=== PATIENT | male | born 1960 | race Caucasian/White ===

== ENCOUNTER 2018-07-25 19:53 | Emergency (ER) | payer OTHER ==
[~2018-07-25] VITALS: Ht 172.7 cm; Wt 90.7 kg
[~2018-07-25 19:53] MED LIST: ASPI81EC PO; CEPH500 PO; CLIN300 PO; DIGO.25; HYDACE5 PO; LOVA20 PO; Lovastatin10 MG PO; METO100ER PO; METO50; METO50ER; METO50ER PO; Norco 10-325 T1 EACH PO; OXYACE5T PO; SIMV10 PO; TERB24TC TOP; WARF1; WARF1 PO; WARF10; WARF10 PO; WARF5 PO; WARF7.5 PO
== END 2018-07-25 20:47 | disposition home or self-care (01) ==
LOC: ER 19:53
DX: K91.840 Postprocedural hemorrhage of a digestive system organ or structure following a digestive system procedure (principal); Z88.5 Allergy status to narcotic agent; Z79.899 Other long term (current) drug therapy; Z79.82 Long term (current) use of aspirin; Z79.01 Long term (current) use of anticoagulants; F17.210 Nicotine dependence, cigarettes, uncomplicated
CPT/HCPCS: 99283

== ENCOUNTER 2018-07-26 01:51 | Emergency (ER) | payer OTHER ==
[~2018-07-26] VITALS: Ht 172.7 cm; Wt 90.7 kg
[~2018-07-26 01:51] MED LIST changes: -ASPI81EC PO; +LO-DOSE ASPIRIN81 MG PO; +WARF4 PO; -WARF7.5 PO
== END 2018-07-26 04:51 | disposition home or self-care (01) ==
LOC: ER 01:51
DX: K06.8 Other specified disorders of gingiva and edentulous alveolar ridge (principal); D68.9 Coagulation defect, unspecified; Z88.5 Allergy status to narcotic agent; Z79.899 Other long term (current) drug therapy; Z79.01 Long term (current) use of anticoagulants; Z79.82 Long term (current) use of aspirin; I10 Essential (primary) hypertension; F17.210 Nicotine dependence, cigarettes, uncomplicated
CPT/HCPCS: 99283; J2405

== ENCOUNTER 2018-07-26 16:22 | Emergency (ER) | payer OTHER, SELFPAY ==
[~2018-07-26] VITALS: Ht 172.7 cm; Wt 87.1 kg
[2018-07-26 17:33] LABS: BASOPHILS ABSOLUTE AUTO 0.02 K/mm3 (0.00-0.23); BASOPHILS PERCENT AUTO 0 % (0-2); EOSINOPHILS ABSOLUTE AUTO 0.04 K/mm3 (0.00-0.68); EOSINOPHILS PERCENT AUTO 1 % (0-6); Hematocrit 36.9 % (37.0-53.0); Hemoglobin 12.3 g/dL (13.5-17.5); IMMATURE GRAN ABSOLUTE AUTO 0.05 K/mm3 (0.00-0.10); IMMATURE GRAN PERCENT AUTO 1 % (0-1); LYMPHOCYTES ABSOLUTE AUTO 1.06 K/mm3 (0.84-5.20); LYMPHOCYTES PERCENT AUTO 12 % (21-46); MONOCYTES ABSOLUTE AUTO 0.85 K/mm3 (0.16-1.47); MONOCYTES PERCENT AUTO 10 % (4-13); Mean Corpuscular HGB 31.5 pg (26.0-34.0); Mean Corpuscular HGB Conc 33.3 g/dL (31.5-36.5); Mean Corpuscular Volume 94 fL (80-100); Mean Platelet Volume 10.6 fL (9.1-12.4); NEUTROPHILS ABSOLUTE AUTO 6.57 K/mm3 (1.96-9.15); NEUTROPHILS PERCENT AUTO 77 % (41-73); Platelet Count 342 K/mm3 (150-400); RDW Standard Deviation 44.7 fL (35.1-46.3); Red Blood Cell Count 3.91 M/mm3 (4.30-5.90); White Blood Cell Count 8.59 K/mm3 (4.00-11.30)
[2018-07-26 17:43] LABS: Alanine Aminotransfer (ALT/SGP 115 U/L (12-78); Albumin, Blood 4.2 g/dL (3.4-5.0); Albumin/Globulin Ratio 1.1 (0.8-1.8); Alk Phos 121 U/L (50-136); Anion Gap 11 mmol/L (6-16); Aspartate Aminotrans (AST/SGOT 110 U/L (12-37); Bilirubin, Total 1.1 mg/dL (0.1-1.0); Blood Urea Nitrogen 27 mg/dL (8-24); Bun/Creatinine Ratio 27.4 (12.0-20.0); CO2, Blood 24 mmol/L (21-32); Calcium, Blood 9.3 mg/dL (8.5-10.1); Chloride, Blood 102 mmol/L (98-108); Creatinine, Blood 0.99 mg/dL (0.60-1.20); Globulin, Blood 3.8 g/dL (2.2-4.0); Glomerular Filtration Rate >60 (60-); Glucose, Blood 136 mg/dL (70-99); Potassium, Blood 4.5 mmol/L (3.5-5.5); Sodium, Blood 137 mmol/L (136-145)
[2018-07-26 19:27] LABS: International Normalized Ratio 1.83; Prothrombin Time Results 18.4 Sec (9.7-11.5)
== END 2018-07-27 00:31 | disposition home or self-care (01) ==
LOC: ER 16:22
PROVIDERS: Emergency Medicine; Physician Assistant
DX: K06.8 Other specified disorders of gingiva and edentulous alveolar ridge (principal); I48.91 Unspecified atrial fibrillation; Z88.5 Allergy status to narcotic agent; Z79.899 Other long term (current) drug therapy; Z79.82 Long term (current) use of aspirin; Z79.01 Long term (current) use of anticoagulants; I10 Essential (primary) hypertension; F17.210 Nicotine dependence, cigarettes, uncomplicated
CPT/HCPCS: 36415; 71046; 80053; 85025; 85610; 86850; 86900; 86901; 93005; 93010; 96374; 99284-25; J7040

== ENCOUNTER 2018-07-29 06:58 | Observation (INO) | payer OTHER, SELFPAY ==
[~2018-07-29] VITALS: Ht 172.7 cm; Wt 89.2 kg
[2018-07-29 07:47] LABS: BASOPHILS ABSOLUTE AUTO 0.03 K/mm3 (0.00-0.23); BASOPHILS PERCENT AUTO 1 % (0-2); EOSINOPHILS ABSOLUTE AUTO 0.08 K/mm3 (0.00-0.68); EOSINOPHILS PERCENT AUTO 2 % (0-6); Hematocrit 25.6 % (37.0-53.0); Hemoglobin 8.5 g/dL (13.5-17.5); IMMATURE GRAN ABSOLUTE AUTO 0.03 K/mm3 (0.00-0.10); IMMATURE GRAN PERCENT AUTO 1 % (0-1); LYMPHOCYTES PERCENT AUTO 15 % (21-46); MONOCYTES ABSOLUTE AUTO 0.42 K/mm3 (0.16-1.47); MONOCYTES PERCENT AUTO 9 % (4-13); Mean Corpuscular HGB Conc 33.2 g/dL (31.5-36.5); Mean Corpuscular Volume 93 fL (80-100); Mean Platelet Volume 9.9 fL (9.1-12.4); NEUTROPHILS ABSOLUTE AUTO 3.37 K/mm3 (1.96-9.15); NEUTROPHILS PERCENT AUTO 73 % (41-73); Platelet Count 222 K/mm3 (150-400); RDW Coefficient Variation 13.2 % (11.7-14.2); RDW Standard Deviation 44.7 fL (35.1-46.3); Red Blood Cell Count 2.74 M/mm3 (4.30-5.90); White Blood Cell Count 4.63 K/mm3 (4.00-11.30)
[2018-07-29 08:18] LABS: IMMATURE RETIC FRACTION 18.9 % (2.3-16.0); RETIC HGB EQUIVALENT 35.9 pg (28.20-36.60); RETICULOCYTE ABSOLUTE 0.1123 M/mm3 (0.0200-0.1100); RETICULOCYTE COUNT PERCENT 4.07 % (0.50-2.50)
[2018-07-29 08:27] LABS: Alanine Aminotransfer (ALT/SGP 69 U/L (12-78); Albumin, Blood 3.7 g/dL (3.4-5.0); Albumin/Globulin Ratio 1.2 (0.8-1.8); Alk Phos 87 U/L (50-136); Anion Gap 5 mmol/L (6-16); Aspartate Aminotrans (AST/SGOT 49 U/L (12-37); Bilirubin, Total 0.4 mg/dL (0.1-1.0); Blood Urea Nitrogen 12 mg/dL (8-24); Bun/Creatinine Ratio 16.3 (12.0-20.0); CO2, Blood 28 mmol/L (21-32); Calcium, Blood 8.5 mg/dL (8.5-10.1); Chloride, Blood 108 mmol/L (98-108); Creatinine, Blood 0.74 mg/dL (0.60-1.20); Globulin, Blood 3.1 g/dL (2.2-4.0); Glomerular Filtration Rate >60 (60-); Glucose, Blood 96 mg/dL (70-99); Potassium, Blood 4.1 mmol/L (3.5-5.5); Sodium, Blood 141 mmol/L (136-145); Total Protein, Blood 6.8 g/dL (6.4-8.2)
[2018-07-29 08:37] LABS: Prothrombin Time Results 42.4 Sec (9.7-11.5)
[2018-07-29 08:39] LABS: International Normalized Ratio 4.59
[2018-07-29 09:29] LABS: Hematocrit 25.6 % (37.0-53.0); Hemoglobin 8.6 g/dL (13.5-17.5)
[2018-07-29 09:59] LABS: Percent Saturation 16.3 % (20.0-50.0)
[2018-07-29] MEDS ORDERED: Lovastatin20 MG PO (14:01)
[2018-07-29 16:19] LABS: Hemoglobin 7.6 g/dL (13.5-17.5)
--- NOTE | 2018-07-29 16:28 | NUR ---
NEW ER ADMIT PT ORIENTED TO ROOM, CALL SYSTEM, ROUNDING ETC. HE IS A/O X4, PLEASANT AFFECT. AMBULATE IND IN ROOM. STATE ORAL SURG 10 DAYS AGO TO REMOVE TEETH R LOWER JAW. STATE WENT TO ER 3 DAY AGO R/T SIGNIFICANT BLEEDING, GIVEN & SENT HOME. STARTED BLEEDING AGAIN TODAY. STATE HAD BEEN CONTINUING WARFARIN & LOVENOX TX R/T AORTIC VALVE REPLACEMENT & INTERMITTANT AFIB. INR 4.59, HE WAS GIVEN VIT K IN ER. BLEEDING HAS STOPPED @ THIS TIME. LAST H&H @ [address] JENKINS MONITORING, TRANSFUSE NEEDED. 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 VSS.
[2018-07-29 21:50] LABS: Hematocrit 23.8 % (37.0-53.0); Hemoglobin 7.9 g/dL (13.5-17.5)
--- NOTE | 2018-07-29 23:45 | NUR ---
HG 7.9 (INCREASE FROM PREVIOUS LEVEL OF 7.6).
--- NOTE | 2018-07-30 05:16 | NUR ---
SHIFT SUMMARY: PT RESTED COMFORTABLY ALL SHIFT, C/O LOW JAW DISCOMFORT X 1 AND GIVEN NORCO 1/2 TABLET WITH RELIEF FELT. PTS SUTURES TO LOWER JAW ARE INTACT WITH NO S/S BLEEDING NOTED OR VOICED. PT ALERT AND ORIENTED X 4, ABLE TO AMBULATE BATHROOM AND BACK WITH GAIT STEADY AND EVEN. PT VOICED HE IS CURRENTLY EATING WARMED SOUPS, YOGURT, ICE CREAM (NO HOT LIQUIDS). PT EDUCATED NEED TO AVOID EATING SOLID FOODS TILL SUTURES ARE REMOVED AND WOUND 100% HEALED AND TO RINSE MOUTH OUT QID WITH MOUTH WASH. PT DENIES NAUSEA. PTS BED LOW POSITION, ALMA ROSA LIGHT AT SIDE.
[2018-07-30 05:34] LABS: BASOPHILS ABSOLUTE AUTO 0.02 K/mm3 (0.00-0.23); BASOPHILS PERCENT AUTO 1 % (0-2); EOSINOPHILS PERCENT AUTO 3 % (0-6); Hematocrit 24.2 % (37.0-53.0); IMMATURE GRAN ABSOLUTE AUTO 0.03 K/mm3 (0.00-0.10); IMMATURE GRAN PERCENT AUTO 1 % (0-1); LYMPHOCYTES ABSOLUTE AUTO 0.82 K/mm3 (0.84-5.20); LYMPHOCYTES PERCENT AUTO 23 % (21-46); MONOCYTES ABSOLUTE AUTO 0.37 K/mm3 (0.16-1.47); MONOCYTES PERCENT AUTO 10 % (4-13); Mean Corpuscular HGB 31.9 pg (26.0-34.0); Mean Corpuscular HGB Conc 33.1 g/dL (31.5-36.5); Mean Platelet Volume 10.4 fL (9.1-12.4); NEUTROPHILS ABSOLUTE AUTO 2.25 K/mm3 (1.96-9.15); NEUTROPHILS PERCENT AUTO 63 % (41-73); Platelet Count 200 K/mm3 (150-400); RDW Coefficient Variation 13.2 % (11.7-14.2); RDW Standard Deviation 46.4 fL (35.1-46.3); Red Blood Cell Count 2.51 M/mm3 (4.30-5.90); White Blood Cell Count 3.59 K/mm3 (4.00-11.30)
[2018-07-30 05:37] LABS: Mean Corpuscular Volume 96 fL (80-100)
--- NOTE | 2018-07-30 05:46 | NUR ---
HG 8.0 THIS AM.
[2018-07-30 05:55] LABS: Anion Gap 4 mmol/L (6-16); Blood Urea Nitrogen 9 mg/dL (8-24); Bun/Creatinine Ratio 11.5 (12.0-20.0); CO2, Blood 29 mmol/L (21-32); Calcium, Blood 8.7 mg/dL (8.5-10.1); Chloride, Blood 106 mmol/L (98-108); Creatinine, Blood 0.79 mg/dL (0.60-1.20); Glomerular Filtration Rate >60 (60-); Glucose, Blood 96 mg/dL (70-99); Sodium, Blood 139 mmol/L (136-145)
[2018-07-30 05:56] LABS: International Normalized Ratio 1.41; Prothrombin Time Results 14.5 Sec (9.7-11.5)
[2018-07-30] MEDS ORDERED: ENOX100I SC (11:07)
[2018-07-30] MEDS ORDERED: WARF5 PO (11:08)
[2018-07-30] MEDS ORDERED: Norco 10-325 T1 EACH PO (11:08)
--- NOTE | 2018-07-30 11:48 | NUR ---
REVIEW D'C. HAS APPT W/DENTIST 08/02 AND W/PCP 07/31. AWARE TO COMMUNICATION STUDIES PROFESSOR MEDS AT PHARM AND TO RETURN TO ER IF ANY PROBLEMS. NO BLEEDING OF GUMS AT THIS TIME. REFUSES W/C. STEADY GAIT. ANSWER ALL QUESTIONS. AMBULATORY IN HALLWAY W/REALTIVES TO POV
== END 2018-07-30 11:49 | disposition home or self-care (01) ==
LOC: ER 06:58 → MEDS 06:59 → ENPENDDIS 07-30 10:50 → MEDS 07-30 11:49
PROVIDERS: Emergency Medicine; Physician Assistant; ADMIT Family Medicine
DX: K91.840 Postprocedural hemorrhage of a digestive system organ or structure following a digestive system procedure (principal); R79.1 Abnormal coagulation profile; I10 Essential (primary) hypertension; I48.0 Paroxysmal atrial fibrillation; D50.0 Iron deficiency anemia secondary to blood loss (chronic); E78.5 Hyperlipidemia, unspecified; F17.210 Nicotine dependence, cigarettes, uncomplicated; Z95.2 Presence of prosthetic heart valve; Z79.01 Long term (current) use of anticoagulants; Z79.899 Other long term (current) drug therapy; Z79.82 Long term (current) use of aspirin; Z88.5 Allergy status to narcotic agent; Y83.8 Other surgical procedures as the cause of abnormal reaction of the patient, or of later complication, without mention of misadventure at the time of the procedure
CPT/HCPCS: 36415; 80048; 80053; 82728; 83540; 83550; 85014; 85018; 85025; 85045; 85610; 85730; 86900; 86901; 96365; 96372; 99284-25; A9270; G0378; J1650

== ENCOUNTER 2018-12-27 11:41 | Emergency (ER) | payer OTHER ==
[~2018-12-27] VITALS: Ht 172.7 cm; Wt 93.0 kg
[~2018-12-27 11:41] MED LIST changes: +ENOX100I SC; +Lovastatin20 MG PO
[2018-12-27] MEDS ORDERED: Lovastatin10 MG PO (12:32)
== END 2018-12-27 12:42 | disposition home or self-care (01) ==
LOC: ER 11:41
DX: Z76.0 Encounter for issue of repeat prescription (principal); F17.210 Nicotine dependence, cigarettes, uncomplicated; Z88.5 Allergy status to narcotic agent
CPT/HCPCS: 99281

== ENCOUNTER 2019-02-07 10:09 | Emergency (ER) | payer OTHER ==
[~2019-02-07] VITALS: Ht 172.7 cm; Wt 95.2 kg
[2019-02-07] MEDS ORDERED: Robaxin-750750 MG PO (11:06)
[2019-02-07] MEDS ORDERED: Norco 5-325 Ta1 EACH PO (11:06)
== END 2019-02-07 11:31 | disposition home or self-care (01) ==
LOC: ER 10:09
DX: M25.512 Pain in left shoulder (principal); I10 Essential (primary) hypertension; Z88.5 Allergy status to narcotic agent; Z79.01 Long term (current) use of anticoagulants; Z79.899 Other long term (current) drug therapy; F17.210 Nicotine dependence, cigarettes, uncomplicated; V89.2XXA Person injured in unspecified motor-vehicle accident, traffic, initial encounter
CPT/HCPCS: 73030; 99283-25

== ENCOUNTER 2022-06-13 17:28 | Emergency (ER) | payer OTHER ==
[~2022-06-13] VITALS: Ht 172.7 cm; Wt 99.8 kg
[~2022-06-13 17:28] MED LIST changes: +ASPIR 8181 M1 PO; +Norco 5-325 Ta1 EACH PO; +Robaxin-750750 MG PO
[2022-06-13 18:03] LABS: BASOPHILS ABSOLUTE AUTO 0.02 K/mm3 (0.00-0.23); BASOPHILS PERCENT AUTO 0 % (0-2); EOSINOPHILS ABSOLUTE AUTO 0.11 K/mm3 (0.00-0.68); EOSINOPHILS PERCENT AUTO 2 % (0-6); Hematocrit 35.7 % (37.0-53.0); Hemoglobin 12.1 g/dL (13.5-17.5); IMMATURE GRAN ABSOLUTE AUTO 0.02 K/mm3 (0.00-0.10); IMMATURE GRAN PERCENT AUTO 0 % (0-1); LYMPHOCYTES PERCENT AUTO 9 % (21-46); MONOCYTES ABSOLUTE AUTO 0.55 K/mm3 (0.16-1.47); MONOCYTES PERCENT AUTO 10 % (4-13); Mean Corpuscular HGB 31.5 pg (26.0-34.0); Mean Corpuscular HGB Conc 33.9 g/dL (31.5-36.5); Mean Corpuscular Volume 93 fL (80-100); Mean Platelet Volume 9.8 fL (9.1-12.4); NEUTROPHILS ABSOLUTE AUTO 4.14 K/mm3 (1.96-9.15); NEUTROPHILS PERCENT AUTO 77 % (41-73); Platelet Count 153 K/mm3 (150-400); RDW Coefficient Variation 12.8 % (11.7-14.2); RDW Standard Deviation 43.9 fL (35.1-46.3); Red Blood Cell Count 3.84 M/mm3 (4.30-5.90); White Blood Cell Count 5.34 K/mm3 (4.00-11.30)
[2022-06-13 18:28] LABS: Albumin/Globulin Ratio 1.1 (0.8-1.8); Bilirubin, Total 0.6 mg/dL (0.1-1.0); Bun/Creatinine Ratio 29.2 (12.0-20.0); Calcium, Blood 9.3 mg/dL (8.5-10.1); Creatinine, Blood 1.06 mg/dL (0.60-1.20); Globulin, Blood 3.6 g/dL (2.2-4.0); Potassium, Blood 4.7 mmol/L (3.5-5.5); Total Protein, Blood 7.6 g/dL (6.4-8.2)
[2022-06-13 19:06] LABS: Source, Urine Clean Catch
[2022-06-13] MEDS ORDERED: LOSA50 PO (19:06)
[2022-06-13] MEDS ORDERED: Ventolin/Prove6.7 GM INH (19:06)
[2022-06-13 19:09] LABS: Appearance, Urine Hazy (Clear); Bilirubin, Urine Neg (Neg); Blood, Urine 5+ (Neg); Color, Urine Yellow (P-Yellow); Glucose Qualitative, Urine Neg (Neg); Ketones, Urine Neg (Neg); Leukocyte Esterase, Urine Neg (Neg); Nitrite, Urine Neg (Neg); Protein, Urine 2+ (Neg); Specific Gravity, Urine 1.015 (1.003-1.022); Urobilinogen, Urine NORM (Normal); pH, Urine 6.5 (5.0-8.0)
[2022-06-13 19:17] LABS: Bacteria Rare /hpf; Red Blood Cells, Urine TNTC /hpf (0-2); Squamous Epithelial Cells Rare /hpf (Few); White Blood Cells, Urine 0-2 /hpf (0-5)
[2022-06-13 19:41] LABS: International Normalized Ratio 2.77; Prothrombin Time Results 27.5 Sec (9.7-11.5)
[2022-06-13 22:00] VITALS: BP 166/102
== END 2022-06-13 22:43 | disposition short-term general hospital (02) ==
LOC: ER 17:28
PROVIDERS: Emergency Medicine; Student in an Organized Health Care Education/Training Program
DX: N13.4 Hydroureter (principal); S36.09XA Other injury of spleen, initial encounter; S22.42XA Multiple fractures of ribs, left side, initial encounter for closed fracture; W11.XXXA Fall on and from ladder, initial encounter; I10 Essential (primary) hypertension; Z79.899 Other long term (current) drug therapy; Z88.5 Allergy status to narcotic agent; Z79.82 Long term (current) use of aspirin; Z79.01 Long term (current) use of anticoagulants; F17.210 Nicotine dependence, cigarettes, uncomplicated
CPT/HCPCS: 36415; 36430; 74177; 80053; 81001; 83690; 85025; 85610; 86850; 86900; 86901; 93005; 93010; 96374-59; 96376; 99285-25; J1170; J7030; P9059; Q9967